=== PATIENT | female | born 1975 | race Caucasian/White ===

== ENCOUNTER 2019-07-13 03:28 | Emergency (ER) | payer BC, OTHER ==
[~2019-07-13] VITALS: Ht 175.3 cm; Wt 54.9 kg
[~2019-07-13 03:28] MED LIST: SULF1TAB31 PO; TRAM50TA2 PO
[2019-07-13 03:32] VITALS: Ht 175.3 cm; Wt 54.9 kg
[2019-07-13] MEDS ORDERED: SOD CHLORIDE 0.9% 1,000 ML IV STA (04:00)
[2019-07-13] MEDS ORDERED: ONDANSETRON 4 MG INJ IV STA ×2 (04:00→04:36)
[2019-07-13] MEDS ORDERED: morphine 2 MG INJ IV STA (04:00)
[2019-07-13] MEDS ORDERED: CEFTRIAXONE 1 GM/50 ML (PMX) 50 ML IVPB ONE (05:00)
--- NOTE | 2019-07-13 05:18 | ERD ---
ER Documentation Chief Complaint Chief Complaint BIB SELF, AP, N/V X 1 DAY HPI This very pleasant 43-year-old female comes in suprapubic abdominal pain nausea and vomiting x1 day. She had 2 episodes of vomiting which is nonbilious n onbloody. Suprapubic pain is mild to moderate intensity no exacerbating alleviating factors. Denies diarrhea. Last bowel movement was today which was normal. She does complain of urgency frequency of urination but no dysuria. Denies any other current issues. ROS All systems reviewed and are negative except as per history of present illness. Medications Home Meds Active Scripts Tramadol HCl (Tramadol HCl) 50 Mg Tablet, 50 MG PO Q4 PRN for PAIN, #20 TAB Prov:ISIDORO VALDIVIA 07/13/19 Sulfamethoxazole/Trimethoprim* (Bactrim Ds* Tablet) 1 Each Tablet, 1 TAB PO BID, #14 TAB Prov:ISIDORO VALDIVIA. 07/13/19 Allergies Allergies: Coded Allergies: No Known Allergy (Unverified , 07/13/19) Physical Exam Vitals Vital Signs Date Temp Pulse Resp B/P (MAP) Pulse Ox O2 O2 Flow FiO2 Time Delivery Rate 07/13/19 98.7 81 18 137/83 100 Room Air 04:49 (101) 07/13/19 97.5 87 16 133/74 98 03:32 (93) Physical Exam Const: No acute distress Head: Atraumatic Eyes: Normal Conjunctiva ENT: Normal External Ears, Nose and Mouth. Neck: Full range of motion. No meningismus. Resp: Clear to auscultation bilaterally Cardio: Regular rate and rhythm, no murmurs Abd: Soft, non tender, non distended. Normal bowel sounds Skin: No petechiae or rashes Back: No midline or flank tenderness Ext: No cyanosis, or edema Neur: Awake and alert Psych: Normal Mood and Affect Result Diagram: 07/13/1940607/13/19 040 Results 24 hrs Laboratory Tests Test 07/13/19 04:07 White Blood Count 8.8 10^3/ul Red Blood Count 4.05 10^6/ul Hemoglobin 13.8 g/dl Hematocrit 41.2 % Mean Corpuscular Volume 101.7 fl Mean Corpuscular Hemoglobin 34.1 pg Mean Corpuscular Hemoglobin Concent 33.5 g/dl Red Cell Distribution Width 11.3 % Platelet Count 221 10^3/UL Mean Platelet Volume 10.4 fl Immature Granulocytes % 0.200 % Neutrophils % % Segmented Neutrophils % (Manual) 88 % Band Neutrophils % (Manual) 6 % Lymphocytes % % Lymphocytes % (Manual) 5 % Reactive Lymphocytes % (Manual) 1 % Monocytes % % Eosinophils % % Basophils % % Nucleated Red Blood Cells % 0.0 /100WBC Immature Granulocytes # 0.020 10^3/ul Neutrophils # 10^3/ul Neutrophils # (Manual) 7.8 10^3/ul Band Neutrophils # 0.5 10^3/ul Lymphocytes (Manual) 0.4 10^3/ul Lymphocytes # 10^3/ul Reactive Lymphocytes # 0.0 10^3/ul Monocytes # 10^3/ul Eosinophils # 10^3/ul Basophils # 10^3/ul Nucleated Red Blood Cells # 10^3/ul Platelet Estimate NORMAL Giant Platelets 1 % Urine Color YELLOW Urine Clarity SLIGHTLY CLOUDY Urine pH 5.0 Urine Specific [place] 1.024 Urine Ketones 2+ mg/dL Urine Nitrite NEGATIVE mg/dL Urine Bilirubin NEGATIVE mg/dL Urine Urobilinogen NEGATIVE mg/dL Urine Leukocyte Esterase 2+ Bear/ul Urine Microscopic RBC 15 /HPF Urine Microscopic WBC 97 /HPF Urine Squamous Epithelial Cells FEW /HPF Urine Bacteria MODERATE /HPF Urine Mucus FEW /HPF Urine Hemoglobin NEGATIVE mg/dL Urine Glucose NEGATIVE mg/dL Urine Total Protein NEGATIVE mg/dl Sodium Level 140 mmol/L Potassium Level 3.6 mmol/L Chloride Level 103 mmol/L Carbon Dioxide Level 27 mmol/L Anion Gap 10 Blood Urea Nitrogen 20 mg/dl Creatinine 0.87 mg/dl Est Glomerular Filtrat Rate mL/min > 60 mL/min Glucose Level 132 mg/dl Calcium Level 9.9 mg/dl Total Bilirubin 0.9 mg/dl Direct Bilirubin 0.00 mg/dl Indirect Bilirubin 0.9 mg/dl Aspartate Amino Transf (AST/SGOT) 30 IU/L Alanine Aminotransferase (ALT/SGPT) 23 IU/L Alkaline Phosphatase 59 IU/L Total Protein 8.4 g/dl Albumin 4.9 g/dl Globulin 3.50 g/dl Albumin/Globulin Ratio 1.40 Lipase 95 U/L Current Medications Medications Dose Sig/Tibrucio Start Time Status Last (Trade) Ordered Route PRN Stop Time Admin Dose Reason Admin Sodium 1,000 ml @ Q1H STAT 07/13/19 DC 07/13/19 Chloride 1,000 mls/hr IV 04:00 04:13 07/13/19 04:59 Morphine 2 mg ONCE STAT 07/13/19 DC 07/13/19 Sulfate IV 04:00 04:13 (morphine) 07/13/19 04:01 Ondansetron 4 mg ONCE STAT 07/13/19 DC 07/13/19 HCl (Zofran IV 04:00 04:13 Inj) 07/13/19 04:01 Ondansetron 4 mg ONCE STAT 07/13/19 DC 07/13/19 HCl (Zofran IV 04:36 04:52 Inj) 07/13/19 04:38 Ceftriaxone 50 ml @ ONCE ONCE 07/13/19 07/13/19 Sodium 100 mls/hr IVPB 05:00 04:52 07/13/19 05:29 Procedures/MDM Patient's gastrointestinal symptoms have stabilized while in the department. No evidence of severe dehydration, sepsis, or surgical abdomen. Extensive discussion with family and patient that occult disease cannot be ruled out. 8 hour recheck for repeat abdominal exam is planned. Symptomology and urinalysis consistent with urinary tract infection. Given Rocephin here. Discharged home with Bactrim. Follow-up with PCP. Return for worsening symptoms. Urine culture sent. Departure Diagnosis: Primary Impression: Abdominal pain Abdominal location: unspecified location Qualified Codes: R10.9 - Unspecified abdominal pain Condition: Stable Patient Instructions: Understanding Urinary Tract Infections (UTIs) ISIDORO VALDIVIA Jul 13, 2019 05:18
[2019-07-13 05:22] VITALS: BP 119/74; PULSE 65; RESP 18
== END 2019-07-13 05:34 | disposition home or self-care (01) ==
LOC: E/R 03:28
DX: R10.30 Lower abdominal pain, unspecified (principal); R11.2 Nausea with vomiting, unspecified
CPT/HCPCS: 36415; 80053; 81001; 83690; 85025; 96361; 96365; 96375; 96376; 99284; J0696; J2270; J2405; J7030